=== PATIENT | female | born 1985 | race Caucasian/White ===

== ENCOUNTER 2024-12-07 19:47 | Outpatient (REF) | payer OTHER, SELFPAY ==
--- OUTSIDE RECORDS SUMMARY | 2024-11-23 09:40 | XMS_ITS | Encounter Summary ---
Author Organization [facility] Address [address] [place] [address] Care Team Providers Care Mountain Bike Guide Name Role Phone Deborah Gomez MD Primary Care Provider [phone] Reason for Referral * Behavioral Health - Outpatient (Routine) - Closed Specialty Diagnoses / Procedures Referred By Sebastián t Referred To Contact Behavioral Health Diagnoses Major depressive disorder with single episode, remission status unspecified (CMS/HCC) Procedures [place] OFFICE/OUTPATIENT [facility] 60 MINUTES Deborah Gomez MD [address] [facility] [place] [address] Phone: tel: fax: [facility] [address] [facility] [address] [place] [address] Phone: tel: fax: Referral ID Status Reason Start Date Expiration Date V isits Requested Visits Authorized [id number] Closed Specialty Services Required 11/23/2024 05/22/2025 1 1 Reason for Visit * Reason Comments Follow-up Encounter Details Date Type Department Care Team (Late st Contact Info) Description 11/23/2024 9:40 AM EDT Office Visit [facility] [address] [facility] [place] [address] Deborah Gomez MD [address] [facility] [place] [address] Major depressive disorder with single episode, remission status unspecified (CMS/HCC) (Primary Dx); Breast screening; Encounter for screening mammogram for malignant neoplasm of breast Social History Tobacco Use Types Packs/Day Years Used Date Smoking Tobacco: Every Day Cigarettes Smokeless Tobacco: Never Alcohol Use Standard Drinks/Week Comments Yes 0 (1 standard drink = 0.6 oz pur e alcohol) occasionally Social Connection and Isolation Panel [NHANES] A nswer Date Recorded In a typical week, how many times do you talk on the phone with family, friends, or neighbors? Three times a week 10/19/2023 How often do you get togethe r with friends or relatives? Twice a week 10/19/2023 How often do you attend chur ch or protestant services? Never 10/19/2023 Do you belong to any clubs o r organizations such as holiness groups, unions, fraternal or athletic groups, or school groups? Yes 10/19/2023 How often do you attend meet ings of the clubs or organizations you belong to? Never 10/19/2023 Are you , , di vorced, , never , or living with a partner? 10/19/2023 AUDIT-C Answer Date Recorded Q1: How often do you have a drink containing alc ohol? 2-3 times a week 10/19/2023 Q2: How many drinks containi ng alcohol do you have on a typical day when you are drinking? 3 or 4 10/19/2023 Q3: How often do you have si x or more drinks on one occasion? Weekly 10/19/2023 Overall Financial Resource Strain (CARDIA) Answe r Date Recorded How hard is it for you to pa y for the very basics like food, housing, medical care, and heating? Hard 10/19/2023 PHQ-2 Answer Date Recorded Patient Health Questionnaire-2 Score 6 10/28/2024 [facility] - Occupational Stress Questionnaire Answer Date Recorded Do you feel stress - tense, restless, nervous, or anxious, or unable to sleep at night because your mind is troubled all the time - these days? Very much 10/19/2023 Exercise Vital Sign Answer Date Recorde d On average, how many days pe r week do you engage in moderate to strenuous exercise (like a brisk walk)? 4 days 10/19/2023 On average, how many minutes do you engage in exercise at this level? 20 min 10/19/2023 Hunger Vital Sign Answer Date Recorded Within the past 12 months, y ou worried that your food would run out before you got the money to buy more. Sometimes true Within the past 12 months, t he food you bought just didn't last and you didn't have money to get more. Never true 07/2023 PRAPARE - Transportation Answer Date Re corded In the past 12 months, has l ack of transportation kept you from medical appointments or from getting medications? No 07/2023 In the past 12 months, has l ack of transportation kept you from meetings, work, or from getting things needed for daily living? No 10/19/2023 Housing Stability Vital Sign Answer Dionte e Recorded In the last 12 months, was t here a time when you were not able to pay the mortgage or rent on time? No 10/19/2023 In the last 12 months, how many places have you lived? 1 10/19/2023 In the last 12 months, was t here a time when you did not have a steady place to sleep or slept in a usp (including now)? No 10/19/2023 Comments Unknown Sex and Gender Information Value Date Recorded Sex Assigned at Not on file Legal Sex Female 7:10 PM EDT Gender Identity Not on file Sexual Orientation Not on file documented as of this encounter Last Filed Vital Signs Vital Sign Reading Time Taken Comments Blood Pressure 114/70 11/23/2024 9:51 AM EDT Pulse 75 11/23/2024 9:51 AM EDT Temperature - - Respiratory Rate 18 11/23/2024 9:51 AM EDT Oxygen Saturation 98% 11/23/2024 9: 51 AM EDT Inhaled Oxygen Concentration - - Weight 90.6 kg (199 lb 12.8 oz) 11/23/2024 9:51 AM EDT Height 167.6 cm (5' 6 ) 11/23/2024 9:51 AM EDT Body Mass Index 32.25 11/23/2024 9:51 AM EDT documented in this encounter Progress Notes * Deborah Gomez MD - 11/23/2024 9:40 AM EDT Images from the original note were not included. Amanda Umana is a 39 y.o. female presents with chief complaint of Follow-up HPI: HPI History of Present Illness The patient presents for evaluation of anxiety. She reports persistent anxiety with no significant improvement despite an increase in her medication dosage. She continues to experience worry and mild depression but perceives her anxiety as more pronounced. She does not endorse any suicidal ideation. She has previously sought counseling services but is not currently seeing a counselor. Her menstrual cycle has recently concluded, characterized by a few days of heavy flow, which is consistent with her usual pattern. She maintains an active lifestyle, engaging in activities such as walking on the beach and around town. She is due for a mammogram and has a scheduled pelvic examination on 12/24/2024. GYNECOLOGICAL HISTORY: - Frequency and Flow: Heavy for a few days SUBJECTIVE: MEDICATIONS: Current Outpatient Medications Medication Instructions famotidine (Pepcid) 20 MG tablet TAKE 1 TABLET BY MOUTH EVERYDAY AT THE SAME TIME venlafaxine XR (Effexor XR) 150 MG 24 hr capsule TAKE 1 CAPSULE BY MOUTH EVERY DAY AT BEDTIME WITH FOOD venlafaxine XR (EFFEXOR XR) 75 mg, Oral, Daily, Total of 225 mg a day . Do not crush or chew. ALLERGIES: No Known Allergies SURGICAL HISTORY: History reviewed. No pertinent surgical history. FAMILY HISTORY: No family history on file. SOCIAL HISTORY: Social History Tobacco Use Smoking status: Every Day Current packs/day: 1.00 Types: Cigarettes Smokeless tobacco: Never Substance Use Topics Alcohol use: Yes Comment: occasionally Drug use: Never Depression: At risk (10/28/2024) PHQ-2 PHQ-2 Score: 6 REVIEW OF SYMPTOMS: Review of Systems Respiratory: Negative. Cardiovascular: Negative. OBJECTIVE: Visit Vitals BP 114/70 (BP Location: Left arm, Patient Position: Sitting, BP Cuff Size: Adult) Pulse 75 Resp 18 Ht 5' 6 Wt 199 lb 12.8 oz SpO2 98% BMI 32.25 kg/m?? Smoking Status Every Day BSA 2.05 m?? Physical Exam Constitutional: Appearance: Normal appearance. She is normal weight. HENT: Head: Normocephalic and atraumatic. Nose: Nose normal. Mouth/Throat: Mouth: Mucous membranes are moist. Eyes: Pupils: Pupils are equal, round, and reactive to light. Cardiovascular: Rate and Rhythm: Normal rate and regular rhythm. Heart sounds: No murmur heard. Pulmonary: Effort: Pulmonary effort is normal. Breath sounds: Normal breath sounds. No wheezing or rhonchi. Musculoskeletal: General: No swelling. Cervical back: Normal range of motion and neck supple. Right lower leg: No edema. Left lower leg: No edema. Skin: General: Skin is warm and dry. Findings: No rash. Neurological: Mental Status: She is alert and oriented to person, place, and time. Sensory: No sensory deficit. Gait: Gait normal. Psychiatric: Mood and Affect: Mood normal. Thought Content: Thought content normal. Judgment: Judgment normal. ASSESSMENT AND PLAN: Assessment/Plan Problem List Items Addressed This Visit Major depressive disorder, single episode, unspecified (CMS/HCC) - Primary Relevant Medications busPIRone (Buspar) 15 MG tablet Other Relevant Orders Ambulatory referral to Behavioral Health Other Visit Diagnoses Breast screening Relevant Orders Bilateral screening mammogram with tomosynthesis Encounter for screening mammogram for malignant neoplasm of breast Relevant Orders Bilateral screening mammogram with tomosynthesis Assessment & Plan 1. Anxiety. - Reports persistent anxiety despite an increase in her current medication dose. - Engages in regular physical activity, including walking and mowing the lawn, to help manage symptoms. - Discussed the importance of a healthy diet and exercise in managing hormonal fluctuations associated with menopause. - Prescription for BuSpar (buspirone) provided, to be taken twice daily or as needed. Dosage may bereduced by half if it induces excessive fatigue. Referral to a counselor made for additional support and coping strategies. 2. Health Maintenance. - Due for a mammogram. - Upcoming pelvic exam scheduled for 12/24/2024. Follow-up - Follow up in 1 month or earlier if condition deteriorates. documented in this encounter Plan of Treatment Upcoming Encounters Date Type Department Care Team (Late st Contact Info) Description 12/21/2024 9:40 AM EDT Office Visit [facility] [address] [place] [id number] Deborah Gomez MD [address] [place] [address] Scheduled Orders Name Type Priority Associated Diagnoses Orde r Schedule Bilateral screening mammogram with tomosynthesis Imaging Routine Breast screening Encounter for screening mammogram for malignant neoplasm of breast Expected: 11/23/2024, Expires: 01/23/2026 Scheduled Referrals Name Type Priority Associated Diagnoses Orde r Schedule Ambulatory referral to Behavioral Health Outpatient Referral Routine Major depressive disorder with single episode, remission status unspecified (CMS/HCC) Expected: 11/23/2024 (Approximate), Expires: 05/26/2025 documented as of this encounter Goals Goal Patient Goal Type Associated Problems Recent Progress Patient-Stated? Author Help patient manage antidepressant medication Care Plan Patient on antidepressant monitoring plan No Deborah Goemz MD documented as of this encounter Visit Diagnoses Diagnosis Major depressive disorder with single episode, remission status unspecified (CMS/HCC)- Primary Breast screening Breast screening, unspecified Encounter for screening mammogram for malignant neoplasm of breast documented in this encounter Additional Health Concerns Active Problems Noted Date Diagnosed Date Patient on antidepressant monitoring plan 2024 Assessment Noted Time PHQ-9 Depression Total Score: 15 025 11:00 AM EDT documented as of this encounter Care Teams Mountain Bike Guide Relationship Specialty Start Date End Date Deborah Gomez MD [address] [place] [address] PCP - General Family Medicine 11/25/22 documented as of this encounter
--- OUTSIDE RECORDS SUMMARY | 2024-12-07 14:00 | XMS_ITS | Encounter Summary ---
Author Organization [facility] Address [address] [place] [address] Care Team Providers Care Oyster Cultivator Name Role Phone Deborah Gomez MD Primary Care Provider [phone] Reason for Visit * Reason Comments Well Women Visit Encounter Details Date Type Department Care Team (Late st Contact Info) Description 12/07/2024 2:00 PM EDT Office Visit [facility] [address] [facility] [place] [address] Devika Coppola PA [address] [place], [facility] Well woman exam with routine gynecological exam (Primary Dx); Breast cancer screening by mammogram Social History Tobacco Use Types Packs/Day Years [...] often do you attend chur ch or hindu services? Never 10/19/2023 Do you belong to any clubs o r organizations such as tenriism groups, unions, fraternal or athletic groups, or [...] Recorded Patient Health Questionnaire-2 Score 6 10/28/2024 [facility] - Occupational Stress [...] place to sleep or slept in a custodial (including now)? No 10/19/2023 Comments Unknown Sex and Gender Information Value Date Recorded Sex Assigned at Not on file Legal Sex Female 7:10 PM EDT Gender Identity Not on file Sexual Orientation Not on file documented as of this encounter Last Filed Vital Signs Vital Sign Reading Time Taken Comments Blood Pressure 120/70 12/07/2024 2:24 PM EDT Pulse - - Temperature - - Respiratory Rate - - Oxygen Saturation - - Inhaled Oxygen Concentration - - Weight 92.9 kg (204 lb 12.8 oz) 12/07/2024 2:24 PM EDT Height 167.6 cm (5' 6 ) 12/07/2024 2:24 PM EDT Body Mass Index 33.06 12/07/2024 2:24 PM EDT documented in this encounter Progress Notes * WARREN Huffman - 12/07/2024 2:00 PM EDT Reason for Appointment: Patient ID: Amanda Umana is a 39 y.o. female who presents for Well Women Visit Patient presents today for Annual Exam. MEDICATIONS Current Outpatient Medications Medication Instructions busPIRone (BUSPAR) 15 mg, Oral, 2 times daily PRN famotidine (Pepcid) 20 MG tablet TAKE 1 TABLET BY MOUTH EVERYDAY AT THE SAME TIME venlafaxine XR (Effexor XR) 150 MG 24 hr capsule TAKE 1 CAPSULE BY MOUTH EVERY DAY AT BEDTIME WITH FOOD venlafaxine XR (EFFEXOR XR) 75 mg, Oral, Daily, Total of 225 mg a day . Do not crush or chew. ALLERGIES No Known Allergies PROBLEMS Active Ambulatory Problems Diagnosis Date Noted Adjustment disorder with depressed mood ([facility]) 10/20/2023 Dysmenorrhea 10/20/2023 Gastroesophageal reflux disease without esophagitis 10/20/2023 Major depressive disorder, single episode, unspecified ([facility]) 10/20/2023 Obesity 10/20/2023 Resolved Ambulatory Problems Diagnosis Date Noted No Resolved Ambulatory Problems No Additional Past Medical History HISTORY PAST MEDICAL HISTORY SOCIAL HISTORY History reviewed. No pertinent past medical history. Social History Tobacco Use Smoking status: Every Day Current packs/day: 1.00 Types: Cigarettes Smokeless tobacco: Never Substance Use Topics Alcohol use: Yes Comment: occasionally Drug use: Never FAMILY HISTORY No family history on file. SURGICAL HISTORY Past Surgical History: Procedure Laterality Date DILATION AND CURETTAGE OF UTERUS TUBAL LIGATION REVIEW OF SYSTEMS Review of Systems: Review of Systems Constitutional: Negative. HENT: Negative. Eyes: Negative. Respiratory: Negative. Cardiovascular: Negative. Gastrointestinal: Negative. Genitourinary: Negative. Musculoskeletal: Negative. Skin: Negative. Neurological: Negative. All other systems reviewed and are negative. Hematological: Negative. Endocrine: Negative. Allergic/Immunologic: Negative. OBJECTIVE Objective: Physical Exam Constitutional: Appearance: Normal appearance. Genitourinary: Right Adnexa: not tender and no mass present. Left Adnexa: not tender and no mass present. No cervical discharge. Breasts: Breasts are soft. Right: Normal. Left: Normal. HENT: Head: Normocephalic. Nose: Nose normal. Mouth/Throat: Mouth: Mucous membranes are moist. Cardiovascular: Rate and Rhythm: Normal rate. Pulmonary: Effort: Pulmonary effort is normal. Abdominal: General: Bowel sounds are normal. Palpations: Abdomen is soft. Musculoskeletal: General: Normal range of motion. Cervical back: Normal range of motion. Neurological: General: No focal deficit present. Mental Status: She is alert. Skin: General: Skin is warm and dry. Psychiatric: Mood and Affect: Mood normal. Vitals and nursing note reviewed. Exam conducted with a travel professional present. Vitals: Estimated body mass index is 33.06 kg/m?? as calculated from the following: Height as of this encounter: 5' 6 . Weight as of this encounter: 204 lb 12.8 oz. BP: 120/70 No LMP recorded (within weeks). ASSESSMENT & PLAN ICD-10-CM 1. Well woman exam with routine gynecological exam Z01.419 THIN PREP TIS PAP AND HR HPV DNA TSH Lipid panel Comprehensive metabolic panel Hemoglobin A1c CBC and differential Lipid panel 2. Breast cancer screening by mammogram Z12.31 Bilateral screening mammogram Bilateral screening mammogram Annual Exam: Patient presents today for an annual exam. Patient states she is doing well and has no complaints. Pap was obtained without difficulty. Orders Placed This Encounter Procedures Bilateral screening mammogram TSH Lipid panel Comprehensive metabolic panel Hemoglobin A1c CBC and differential Follow Up: Patient is to return in one year for annual unless needed otherwise. Documented by WARREN Huffman on behalf of: WARREN Huffman documented in this encounter Plan of Treatment Upcoming Encounters Date Type Department Care Team (Late st Contact Info) Description 12/21/2024 9:40 AM EDT Office Visit [facility] [address] [place] [phone] Deborah Gomez MD [address] [place] [address] Scheduled Orders Name Type Priority Associated Diagnoses Orde r Schedule Bilateral screening mammogram Imaging Routine Breast cancer screening by mammogram Expected: 12/07/2024 (Approximate), Expires: 02/06/2026 THIN PREP TIS PAP AND HR HPV DNA Pathology and Cytology Routine Well woman exam with routine gynecological exam Ordered: 12/07/2024 TSH Lab Routine Well woman exam with routine gynecological exam Ordered: 12/07/2024 Lipid panel Lab Routine Well woman exam with routine gynecological exam Expected: 12/07/2024 (Approximate), Expires: 12/07/2025 Comprehensive metabolic panel Lab Routine Well woman exam with routine gynecological exam Ordered: 12/07/2024 Hemoglobin A1c Lab Routine Well woman exam with routine gynecological exam Ordered: 12/07/2024 CBC and differential Lab Routine Well woman exam with routine gynecological exam Ordered: 12/07/2024 documented as of this encounter Goals Goal Patient Goal Type Associated Problems Recent Progress Patient-Stated? Author Help patient manage antidepressant medication Care Plan Patient on antidepressant monitoring plan No Deborah Gomez MD documented as of this encounter Procedures Procedure Name Priority Date/Time Associated Diagnosis Comments PAP SMEAR Routine 08/26/2022 12:00 AM EST documented in this encounter Results * Pap Smear (08/26/2022 12:00 AM EST) Swab Cervical swab / Unknown us Zachary Zamora MD LAB CYTOLOGY ORDERABLES Final Result EXTERNAL LAB documented in this encounter Visit Diagnoses Diagnosis Well woman exam with routine gynecological exam- Primary Routine gynecological examination Breast cancer screening by mammogram documented in this encounter Additional Health Concerns Active Problems Noted Date Diagnosed Date Patient on antidepressant monitoring plan 2024 Assessment Noted Time PHQ-9 Depression Total Score: 15 025 11:00 AM EDT documented as of this encounter Care Teams Oyster Cultivator Relationship Specialty Start Date End Date Deborah Gomze MD [address] [place] [address] PCP - General Family Medicine 11/25/22 documented as of this encounter
--- OUTSIDE RECORDS SUMMARY | 2024-12-07 19:52 | XMS_ITS | Encounter Summary ---
Author Organization [facility] Address [address] [place] [address] Care Team Providers Care Senior Design Engineering Specialist Name Role Phone Deborah Gomez MD Primary Care Provider [phone] Encounter Details Date Type Department Care Team (Latest Contact Info) Description 11/23/2024 Travel Social History Tobacco Use Types Packs/Day Years [...] often do you attend chur ch or jehovah's witness services? Never 10/19/2023 Do you belong to any clubs o r organizations such as yarsanism groups, unions, fraternal or athletic groups, or [...] Recorded Patient Health Questionnaire-2 Score 6 10/28/2024 [facility] - Occupational Stress [...] place to sleep or slept in a long-term (including now)? No 10/19/2023 Comments Unknown Sex and Gender Information Value Date Recorded Sex Assigned at Not on file Legal Sex Female 7:10 PM EDT Gender Identity Not on file Sexual Orientation Not on file documented as of this encounter Plan of Treatment Upcoming Encounters Date Type Department Care Team (Late st Contact Info) Description 12/21/2024 9:40 AM EDT Office Visit [facility] [address] [place] [phone] Deborah Gomez MD [address] [facility] [place] [address] documented as of this encounter Goals Goal Patient Goal Type Associated Problems Recent Progress Patient-Stated? Author Help patient manage antidepressant medication Care Plan Patient on antidepressant monitoring plan No Deborah Gomez MD documented as of this encounter Visit Diagnoses Not on filedocumented in this encounter Additional Health Concerns Active Problems Noted Date Diagnosed Date Patient on antidepressant monitoring plan 2024 Assessment Noted Time PHQ-9 Depression Total Score: 15 025 11:00 AM EDT documented as of this encounter Care Teams Senior Design Engineering Specialist Relationship Specialty Start Date End Date Deborah Gomez MD [address] [place] [address] PCP - General Family Medicine 11/25/22 documented as of this encounter
--- OUTSIDE RECORDS SUMMARY | 2024-12-07 19:52 | XMS_ITS | Encounter Summary ---
Author Organization [facility] Address [address] [place] [address] Care Team Providers Care Potato Peeling Machine Operator Name Role Phone Deborah Gomez MD Primary Care Provider [phone] Encounter Details Date Type Department Care Team (Latest Contact Info) Description 12/07/2024 Travel Social History Tobacco Use Types Packs/Day [...] often do you attend chur ch or confucianist services? Never 10/19/2023 Do you belong to any clubs o r organizations such as bahai groups, unions, fraternal or athletic groups, or [...] Recorded Patient Health Questionnaire-2 Score 6 10/28/2024 [facility] - Occupational [...] place to sleep or slept in a chcf (including now)? No 10/19/2023 Comments Unknown Sex [...] EDT Office Visit [facility] [address] [place] [phone] Deborah Gomez MD [address] [facility] [place] [address] documented as of this encounter [...] documented as of this encounter Care Teams Potato Peeling Machine Operator Relationship Specialty Start Date End Date Deborah Gomez MD [address] [place] [address] PCP - General Family Medicine 11/25/22 documented as of this encounter
--- OUTSIDE RECORDS SUMMARY | 2024-12-07 19:52 | XMS_ITS | Clinical Summary ---
Author Organization [facility] Address [address] [place] [address] Care Team Providers Care Cook Dessert Name Role Phone Deborah Gomez MD Primary Care Provider [phone] Allergies No known active allergies Medications famotidine (Pepcid) 20 MG tabletIndication s:Gastroesophage al reflux disease without esophagitis TAKE 1 TABLET BY MOUTH EVERYDAY AT THE SAME TIME 90 tablet 4 Active venlafaxine XR (Effexor XR) 150 MG 24 hr capsuleIndicatio ns:Adjustment disorder with depressed mood (CMS/HCC) TAKE 1 CAPSULE BY MOUTH EVERY DAY AT BEDTIME WITH FOOD 90 capsule 1 5 Active venlafaxine XR (Effexor XR) 75 MG 24 hr capsuleIndicatio ns:Current mild episode of major depressive disorder without prior episode (HCC) (CMS/HCC) Take 1 capsule (75 mg) by mouth Daily Total of 225 mg a day . Do not crush or chew. 90 capsule 3 5 10/29/19 26 Active busPIRone (Buspar) 15 MG tabletIndication s:Major depressive disorder with single episode, remission status unspecified (CMS/HCC) Take 1 tablet (15 mg) by mouth 2 (two) times a day as needed (anxiety) 60 tablet 11 5 11/24/19 26 Active Active Problems Problem Noted Date Diagnosed Date Adjustment disorder with depressed mood 10/20/19 24 Dysmenorrhea 10/20/2023 Gastroesophageal reflux disease without esophagi tis 10/20/2023 Major depressive disorder, single episode, unspe cified 10/20/2023 Obesity 10/20/2023 Encounters Date Type Department Care Team Description 12/07/2024 2:00 PM EDT Office Visit [facility] [address] [place] [phone] Devika Coppola PA Well woman exam with routine gynecological exam (Primary Dx); Breast cancer screening by mammogram 12/07/2024 Bamboo flowsheet [facility] [address] [place] [phone] Devika Coppola PA 12/07/2024 Travel 11/23/2024 9:40 AM EDT Office Visit [facility] [address] [place] [phone] Deborah Gomez MD Major depressive disorder with single episode, remission status unspecified (CMS/HCC) (Primary Dx); Breast screening; Encounter for screening mammogram for malignant neoplasm of breast 11/23/2024 Bamboo flowsheet [facility] [address] [place] [address] Deborah Gomez MD 11/23/2024 Travel 10/28/2024 11:20 AM EDT Office Visit [facility] [address] [place] [phone] Deborah Gomez MD Adjustment disorder with depressed mood (CMS/HCC) (Primary Dx); Current mild episode of major depressive disorder without prior episode (HCC) (CMS/HCC); Gastroesophageal reflux disease without esophagitis; Tobacco abuse 10/28/2024 Bamboo flowsheet [facility] [address] [place] [address] Deborah Gomez MD 10/28/2024 Travel from Last 3 Months Social History Tobacco Use Types Packs/Day Years Used Date Smoking Tobacco: Every Day Cigarettes Smokeless Tobacco: Never Tobacco Cessation:Ready to Q uit: Not Asked; Counseling Given: Not Answered Alcohol Use Standard Drinks/Week Comments Yes 0 [...] often do you attend chur ch or mandaen services? Never 10/19/2023 Do you belong to any clubs o r organizations such as sikhism groups, unions, fraternal or athletic groups, or [...] Recorded Patient Health Questionnaire-2 Score 6 10/28/2024 [facility] - [...] place to sleep or slept in a care home (including now)? No 10/19/2023 Comments Unknown Sex and Gender Information Value Date Recorded Sex Assigned at Not on file Legal Sex Female 7:10 PM EDT Gender Identity Not on file Sexual Orientation Not on file Last Filed Vital Signs Vital Sign Reading Time Taken Comments Blood Pressure 120/70 12/07/2024 2:24 PM EDT Pulse 75 11/23/2024 9:51 AM EDT Temperature - - Respiratory Rate 18 11/23/2024 9:51 AM EDT Oxygen Saturation 98% 11/23/2024 9:51 AM EDT Inhaled Oxygen Concentration - - Weight 92.9 kg (204 lb 12.8 oz) 12/07/2024 2:24 PM EDT Height 167.6 cm (5' 6 ) 12/07/2024 2:24 PM EDT Body Mass Index 33.06 12/07/2024 2:24 PM EDT Plan of Treatment Upcoming Encounters Date Type Department Care Team (Late st Contact Info) Description 12/21/2024 9:40 AM EDT Office Visit [facility] [address] [place] [phone] Deborah Gomez MD [address] [place], [place] [phone] Health Maintenance Due Date Last Done Comments Mammogram 2024 Influenza Vaccine (Season Ended) 2025 05/03/20 22, 05/16/2019 Cervical Cancer Screening 08/26/2027 HPV/Cotest 08/26/2027 Pap Smear 08/26/2027 08/26/2022 Goals Goal Patient Goal Type Associated Problems Recent Progress Patient-Stated? Author Help patient manage antidepressant medication Care Plan Patient on antidepressant monitoring plan No Deborah Gomez MD Procedures Procedure Name Priority Date/Time Associated Diagnosis Comments PAP SMEAR Routine 08/26/2022 12:00 AM EST from Last 3 Months or Most Recently Relevant to Health Maintenance Results * Pap Smear (08/26/2022 12:00 AM EST) Swab Cervical swab / Unknown us Zachary Zamora MD LAB CYTOLOGY ORDERABLES Final Result EXTERNAL LAB from Last 3 Months or Most Recently Relevant to Health Maintenance Additional Health Concerns Active Problems Noted Date Diagnosed Date Patient on antidepressant monitoring plan 2024 Insurance [employer] Care Teams Cook Dessert Relationship Specialty Start Date End Date Deborah Gomez MD [address] [place] [address] PCP - General Family Medicine 11/25/22
--- OUTSIDE RECORDS SUMMARY | 2024-12-07 19:52 | XMS_ITS | Encounter Summary ---
Author Organization [facility] Address [address] [place] [address] Care Team Providers Care Stencil Sprayer Name Role Phone Deborah Gomez MD Primary Care Provider [phone] Encounter Details Date Type Department Care Team (Late st Contact Info) Description 12/07/2024 Bamboo flowsheet [facility] [address] [place] [address] Devika Coppola PA [address] [place], [facility] Social History Tobacco Use Types Packs/Day Years [...] often do you attend chur ch or advent services? Never 10/19/2023 Do you belong to any clubs o r organizations such as confucianism groups, unions, fraternal or athletic groups, or [...] Recorded Patient Health Questionnaire-2 Score 6 10/28/2024 [facility] Occup[facility] - Occupational Stress Questionnaire Answer Date Recorded [...] place to sleep or slept in a jail (including now)? No 10/19/2023 Comments Unknown Sex and Gender Information Value Date Recorded Sex Assigned at Not on file Legal Sex Female 7:10 PM EDT Gender Identity Not on file Sexual Orientation Not on file documented as of this encounter Plan of Treatment Upcoming Encounters Date Type Department Care Team (Late st Contact Info) Description 12/21/2024 9:40 AM EDT Office Visit [facility] [address] [place] [address] Deborah Gomez MD [address] [place], [place] [phone] documented as of this encounter Goals Goal [...] documented as of this encounter Care Teams Stencil Sprayer Relationship Specialty Start Date End Date Deborah Gomez MD [address] [place], [place] [phone] PCP - General Family Medicine 11/25/22 documented as of this encounter
--- OUTSIDE RECORDS SUMMARY | 2024-12-07 19:52 | XMS_ITS | Encounter Summary ---
Author Organization [facility] Address [address] [place] [address] Care Team Providers Care Manager Strategic Marketing Name Role Phone Deborah Gomez MD Primary Care Provider [phone] Encounter Details Date Type Department Care Team (Late st Contact Info) Description 11/23/2024 Bamboo flowsheet [facility] [address] [place] [address] Deborah Gomez MD [address] [place] [address] Social History Tobacco Use Types Packs/Day Years [...] often do you attend chur ch or anabaptist services? Never 10/19/2023 Do you belong to any clubs o r organizations such as yazidi groups, unions, fraternal or athletic groups, or [...] Recorded Patient Health Questionnaire-2 Score 6 10/28/2024 [facility]at ional Health - Occupational [...] place to sleep or slept in a fdc (including now)? No 10/19/2023 Comments Unknown Sex and Gender Information Value Date Recorded Sex Assigned at Not on file Legal Sex Female 7:10 PM EDT Gender Identity Not on file Sexual Orientation Not on file documented as of this encounter Plan of Treatment Upcoming Encounters Date Type Department Care Team (Late st Contact Info) Description 12/21/2024 9:40 AM EDT Office Visit [facility] [address] [place] [address] Deborah Gomez MD [address] [place], [place] [phone] documented as of this encounter Goals Goal [...] documented as of this encounter Care Teams Manager Strategic Marketing Relationship Specialty Start Date End Date Deborah Gomez MD [address] [place], [place] [phone] PCP - General Family Medicine 11/25/22 documented as of this encounter
--- OUTSIDE RECORDS SUMMARY | 2024-12-07 19:52 | XMS_ITS | Encounter Summary ---
Author Organization [facility] Address [address] [place] [address] Care Team Providers Care Radio Reporter Name Role Phone Deborah Gomez MD Primary Care Provider [phone] Doreen Patel SURFACING MACHINE OPERATOR Unavailable Reason for Visit * Reason Comments Med Refill Encounter Details Date Type Department Care Team (Late st Contact Info) Description 04/13/2024 Refill [facility] [address] [place] [address] Doreen Patel NP Gastroesophageal reflux disease without esophagitis Social History Tobacco Use Types Packs/Day Years Used Date Smoking Tobacco: Every Day Cigarettes Smokeless Tobacco: Never Social Connection and Isolation Panel [NHANES] A nswer Date Recorded In a typical week, how many times do you talk on the phone with family, friends, or neighbors? Three times a week 10/19/2023 How often do you get togethe r with friends or relatives? Twice a week 10/19/2023 How often do you attend chur ch or sikh services? Never 10/19/2023 Do you belong to any clubs o r organizations such as jew groups, unions, fraternal or athletic groups, or [...] Answer Date Recorded Patient Health Questionnaire-2 Score 3 10/20/2023 [facility]at ional Health - Occupational [...] place to sleep or slept in a fpc (including now)? No 10/19/2023 Comments Unknown Sex and Gender Information Value Date Recorded Sex Assigned at Not on file Legal Sex Female 7:10 PM EDT Gender Identity Not on file Sexual Orientation Not on file documented as of this encounter Miscellaneous Notes * Telephone Encounter - Brittney Camacho MA - 04/13/2024 9:54 AM EDT Approving, but needs appt for additional refills. documented in this encounter Plan of Treatment Upcoming Encounters Date Type Department Care Team (Late st Contact Info) Description 12/21/2024 9:40 AM EDT Office Visit [facility] [address] [place] [address] Deborah Gomez MD [address] [place], [place] [phone] documented as of this encounter Visit Diagnoses Diagnosis Gastroesophageal reflux disease without esophagitis Esophageal reflux documented in this encounter Additional Health Concerns Assessment Noted Time PHQ-9 Depression Total Score: 18 024 8:07 AM EDT documented as of this encounter Care Teams Radio Reporter Relationship Specialty Start Date End Date Deborah Gomez MD [address] [place] [address] PCP - General Family Medicine 11/25/22 Doreen Patel NP PCP - Medical [place] [employer] 01/17/19 10/06/24 documented as of this encounter
[2024-12-13 14:08] LABS: Age Gdln ACOG Testing Note (.); HPV Aptima Negative (Negative); IGP, Aptima HPV, rfx 16/18,45 Note (.)
== END 2024-12-07 19:48 | disposition home or self-care (01) ==
LOC: LAB 19:47
PROVIDERS: PCP Internal Medicine Gastroenterology; Visit Provider Physician Assistant
DX: Z01.419 Encounter for gynecological examination (general) (routine) without abnormal findings (principal)
CPT/HCPCS: 87624; 88175